=== PATIENT | male | born 1950 | race Caucasian/White ===

== ENCOUNTER 2017-02-03 11:28 | Emergency (ER) | payer MEDICARE, OTHER ==
[~2017-02-03] VITALS: Ht 182.9 cm; Wt 96.6 kg
[~2017-02-03 11:28] MED LIST: ALPR0.5T99 PO; ASPI81TA82 PO; ATRITAB PO; AVOD0.5C PO; BUPR-175 PO; DOXA1 PO; FLUO20 PO; METO25CR PO; ROSU40 PO
[2017-02-03 12:06] VITALS: PULSE 77; RESP 16; TEMP 98.4; O2SAT 97
[2017-02-03] MEDS ORDERED: PROZ20CA11 PO (12:06)
[2017-02-03] MEDS ORDERED: AVOD0.5C PO (12:06)
[2017-02-03] MEDS ORDERED: DOXA1TAB43 PO (12:06)
[2017-02-03] MEDS ORDERED: ASPI81CH CHEW (12:06)
[2017-02-03] MEDS ORDERED: EMTR1TAB2 PO (12:06)
[2017-02-03 12:11] VITALS: O2SAT 72
--- NOTE | 2017-02-03 12:11 | PD ---
HPI Chief Complaint: Cardiac Complaint Time Seen by Provider: 11:50 Travel History International Travel<30 days: No Contact w/Intl Traveler<30days: No Traveled to known affect area: No History of Present Illness HPI The patient is a 66-year-old male who presents to the emergency department for heart weight fluctuations. The patient has noticed over the last several days when he awakens in the morning his heart rate will be in the 40s and 50s, was elevated during the day and then sometimes occasionally drop back into the 40s and 50s. The patient states he spoke with his neighbor who was a nurse and she advised him to get his fluctuations and heart rates evaluated. The patient denies any symptoms such as chest pain, shortness of breath, lightheadedness, dizziness, nausea, vomiting, or abdominal pain. He does have a history of chronic shortness of breath secondary to previous tobacco use and COPD, but denies any acute shortness of breath. The patient is currently followed by his screedman/laborer, Dr. Patel and states he recently had a stress test and echocardiogram which were unremarkable. The patient denies any known history of arrhythmias. He cannot recall which medications he currently takes, does note that he takes a "white pill ", but does not know the name. The patient does take [id number] supplements for his age as well as Hydroxycut. PFSH Past Medical History Arthritis: Yes Autoimmune Disease: Yes (HIV) Blood Disorders: Yes Anxiety: Yes Depression: Yes Cancer: No Cardiovascular Problems: Yes (NC WITH STENT PLACEMENT) Diabetes: No Hepatitis: No Hiatal Hernia: No Hypertension: Yes Immune Disorder: Yes (HIV) Musculoskeletal: Yes Neurologic: No Psychiatric: No Respiratory: Yes (COPD) Thyroid Disease: No Past Surgical History Abdominal Surgery: Yes (APPENDECTOMY, CHOLYCYSTECTOMY) Appendectomy: Yes Cardiac Surgery: Yes (CARDIAC CATHERIZATION) Cholecystectomy: Yes Coronary Stent: Yes Genitourinary Surgery: No Oral Surgery: Yes (TONSILLECTOMY) Pacemaker: No Tonsillectomy: Yes Social History Alcohol Use: Yes (DAILY, 2-3 DRINKS) Tobacco Use: Yes (CIGARETTES, 1 PPD X 42 YEARS) Substance Use: No Allergies-Medications (Allergen,Severity, Reaction): Coded Allergies: phenol (Unverified Allergy, Severe, passed out, 01/02/17) phenol liquid (Unverified Allergy, Severe, passed out, 01/02/17) Reported Meds & Prescriptions Reported Meds & Active Scripts Active Reported Odefsey (Zmslhhdfegvqo-Uajlibhkufk-Uatchfyyy Alafenam) 200-200-25 Mg Tab 1 Tab PO DAILY Prozac (Fluoxetine HCl) 20 Mg Cap 20 Mg PO DAILY Avodart (Dutasteride) 0.5 Mg Cap 0.5 Mg PO DAILY Doxazosin (Doxazosin Mesylate) 8 Mg Tab 8 Mg PO DAILY Aspirin 81 Mg Chew 81 Mg CHEW DAILY Review of Systems Except as stated in HPI: all other systems reviewed are Neg HENT: No: Lightheadedness Cardiovascular: Positive: Other (as noted in the history of present illness), No: Chest Pain or Discomfort, Diaphoresis Respiratory: Positive: Shortness of Breath (chronic shortness of breath, denies any acute changes) Gastrointestinal: No: Nausea, Vomiting Musculoskeletal: No: Weakness, Edema Neurologic: No: Dizziness Physical Exam Narrative GENERAL: Awake, alert, pleasant 66-year-old male who appears his stated age and is in no acute respiratory distress. Very pleasant in conversation. SKIN: Focused skin assessment warm/dry. HEAD: Atraumatic. Normocephalic. EYES: Pupils equal and round. No scleral icterus. No injection or drainage. ENT: No nasal bleeding or discharge. Mucous membranes pink and moist. NECK: Trachea midline. No JVD. CARDIOVASCULAR: Regular rate and rhythm. No murmur appreciated. Heart rate in the 60s. RESPIRATORY: No accessory muscle use. Clear to auscultation. Breath sounds equal bilaterally. GASTROINTESTINAL: Abdomen soft, non-tender, nondistended. No rebound tenderness. MUSCULOSKELETAL: No obvious deformities. No clubbing. No cyanosis. No edema. NEUROLOGICAL: Awake and alert. No obvious cranial nerve deficits. Motor grossly within normal limits. Normal speech. Nonfocal. PSYCHIATRIC: Appropriate mood and affect; insight and judgment normal. Data Data Last Documented VS Vital Signs Date Time Temp Pulse Resp B/P (MAP) Pulse Ox O2 Delivery O2 Flow Rate FiO2 02/03/17 12:11 72 02/03/17 12:06 98.4 77 16 Orders Orders Basic Metabolic Panel (Bmp) (02/03/17 12:02) Ckmb (Isoenzyme) Profile (02/03/17 12:02) Complete Blood Count With Diff (02/03/17 12:02) Magnesium (Mg) (02/03/17 12:02) Troponin I (02/03/17 12:02) Ecg Monitoring (02/03/17 12:02) Iv Access Insert/Monitor (02/03/17 12:02) Oximetry (02/03/17 12:02) Sodium Chloride 0.9% Flush (Ns Flush) (02/03/17 12:15) CKMB (02/03/17 11:47) CKMB% (02/03/17 11:47) Labs Laboratory Tests Test 02/03/17 11:47 White Blood Count 9.8 TH/MM3 Red Blood Count 4.90 MIL/MM3 Hemoglobin 16.1 GM/DL Hematocrit 48.6 % Mean Corpuscular Volume 99.3 FL Mean Corpuscular Hemoglobin 33.0 PG Mean Corpuscular Hemoglobin Concent 33.2 % Red Cell Distribution Width 12.9 % Platelet Count 168 TH/MM3 Mean Platelet Volume 8.8 FL Neutrophils (%) (Auto) 63.7 % Lymphocytes (%) (Auto) 20.5 % Monocytes (%) (Auto) 10.7 % Eosinophils (%) (Auto) 2.1 % Basophils (%) (Auto) 3.0 % Neutrophils # (Auto) 6.2 TH/MM3 Lymphocytes # (Auto) 2.0 TH/MM3 Monocytes # (Auto) 1.1 TH/MM3 Eosinophils # (Auto) 0.2 TH/MM3 Basophils # (Auto) 0.3 TH/MM3 CBC Comment DIFF FINAL Differential Comment Blood Urea Nitrogen 22 MG/DL Creatinine 1.00 MG/DL Random Glucose 97 MG/DL Calcium Level 8.7 MG/DL Magnesium Level 2.3 MG/DL Sodium Level 138 MEQ/L Potassium Level 4.0 MEQ/L Chloride Level 106 MEQ/L Carbon Dioxide Level 23.2 MEQ/L Anion Gap 9 MEQ/L Estimat Glomerular Filtration Rate 75 ML/MIN Total Creatine Kinase 169 U/L Creatine Kinase MB 4.3 NG/ML Troponin I LESS THAN 0.02 NG/ML MDM Medical Decision Making Medical Screen Exam Complete: Yes Emergency Medical Condition: Yes Medical Record Reviewed: Yes Interpretation(s) EKG reveals sinus rhythm with frequent PVCs. Laboratory Tests Test 02/03/17 11:47 White Blood Count 9.8 TH/MM3 Red Blood Count 4.90 MIL/MM3 Hemoglobin 16.1 GM/DL Hematocrit 48.6 % Mean Corpuscular Volume 99.3 FL Mean Corpuscular Hemoglobin 33.0 PG Mean Corpuscular Hemoglobin Concent 33.2 % Red Cell Distribution Width 12.9 % Platelet Count 168 TH/MM3 Mean Platelet Volume 8.8 FL Neutrophils (%) (Auto) 63.7 % Lymphocytes (%) (Auto) 20.5 % Monocytes (%) (Auto) 10.7 % Eosinophils (%) (Auto) 2.1 % Basophils (%) (Auto) 3.0 % Neutrophils # (Auto) 6.2 TH/MM3 Lymphocytes # (Auto) 2.0 TH/MM3 Monocytes # (Auto) 1.1 TH/MM3 Eosinophils # (Auto) 0.2 TH/MM3 Basophils # (Auto) 0.3 TH/MM3 CBC Comment DIFF FINAL Differential Comment Blood Urea Nitrogen 22 MG/DL Creatinine 1.00 MG/DL Random Glucose 97 MG/DL Calcium Level 8.7 MG/DL Magnesium Level 2.3 MG/DL Sodium Level 138 MEQ/L Potassium Level 4.0 MEQ/L Chloride Level 106 MEQ/L Carbon Dioxide Level 23.2 MEQ/L Anion Gap 9 MEQ/L Estimat Glomerular Filtration Rate 75 ML/MIN Total Creatine Kinase 169 U/L Creatine Kinase MB 4.3 NG/ML Troponin I LESS THAN 0.02 NG/ML Differential Diagnosis Differential diagnosis includes medication side effect, sick sinus syndrome, bradycardia, ischemia, medication side effect, supplement side effect. Narrative Course IV was established, labs are drawn and sent, and the patient was placed on cardiac telemetry monitoring and continuous pulse oximetry monitoring. EKG was ordered and interpreted. Electrolytes including magnesium and potassium were sent to lab. Patient is currently asymptomatic and states he recently had a stress test and echocardiogram which were unremarkable, doubt PVCs are acutely related to ischemia. The patient's potassium and magnesium are unremarkable. The patient's troponin is negative, CPK is unremarkable, CPK-MB was slightly elevated at 4.3. However, the patient has no chest pain and recent stress test that was performed as an outpatient. I believe the patient is stable for outpatient follow-up. Diagnosis Primary Impression: Palpitations Patient Instructions: General Instructions Additional Instructions: Stop Hydroxycut. Follow-up with your screedman/laborer, Dr. Patel. Return if symptoms worsen or progress. Please provide the patient a copy of his labs at discharge. Med/Other Pt SpecificInfo: No Change to Meds, Other (stop Hydroxycut) Disposition: 01 DISCHARGE HOME Condition: Stable Toby Grover MD Feb 03, 2017 12:11
[2017-02-03 12:12] LABS: AUTOMATED NEUTROPHIL # 6.2 TH/MM3 (1.8-7.7); BASOPHIL # 0.3 TH/MM3 (0-0.2); EOSINOPHIL # 0.2 TH/MM3 (0-0.4); EOSINOPHIL % 2.1 % (0.0-4.0); HEMATOCRIT 48.6 % (39.0-51.0); HEMO FLAGS DIFF FINAL; LYMPH % 20.5 % (9.0-44.0); MEAN CELL VOLUME 99.3 FL (80.0-100.0); MEAN CORPUSCULAR HGB CONC 33.2 % (32.0-36.0); MONO % 10.7 % (0.0-8.0); NEUT % 63.7 % (16.0-70.0); PLATELET COUNT 168 TH/MM3 (150-450); RED CELL DISTRIBUTION WIDTH 12.9 % (11.6-17.2); WHITE BLOOD COUNT 9.8 TH/MM3 (4.0-11.0)
[2017-02-03] MEDS ORDERED: SODIUM CHLORIDE 0.9% FLUSH 10 ML FLUSH IVF PRN (12:15)
[2017-02-03 12:20] LABS: CHLORIDE 106 MEQ/L (98-107); SODIUM (NA) 138 MEQ/L (136-145)
[2017-02-03 12:23] LABS: ANION GAP 9 MEQ/L (5-15); BICARBONATE 23.2 MEQ/L (21.0-32.0); BLOOD UREA NITROGEN 22 MG/DL (7-18); MAGNESIUM 2.3 MG/DL (1.5-2.5)
[2017-02-03 12:26] LABS: GLOMERULAR FILTRATION RATE 75 ML/MIN (>89)
[2017-02-03 12:29] LABS: CREATINE KINASE 169 U/L (39-308)
[2017-02-03 12:41] LABS: CKMB 4.3 NG/ML (0.5-3.6)
[2017-02-03] MEDS ORDERED: AMLO5 PO (13:11)
--- NOTE | 2017-02-04 13:01 | EKG ---
Date Performed: 02/03/2017 Time Performed: 11:33:25 PTAGE: 66 years EKG: Sinus rhythm WITH FREQUENT VENTRICULAR PREMATURE COMPLEXES WITH OCCASIONAL SUPRAVENTRICULAR PREMATURE COMPLEXES A BNORMAL RHYTHM ECG PREVIOUS TRACING : 01/25/2012 19.29 Compared to previous tracing, ventricular and supraventricu lar ectopy is now present. DOCTOR: Everett Butler Interpretating Date/Time 02/04/2017 13:00:28
== END 2017-02-03 13:20 | disposition home or self-care (01) ==
LOC: PHED 11:28
DX: R00.2 Palpitations (principal); I10 Essential (primary) hypertension; J44.9 Chronic obstructive pulmonary disease, unspecified; Z95.5 Presence of coronary angioplasty implant and graft; Z87.891 Personal history of nicotine dependence
CPT/HCPCS: 80048; 82550; 82552; 83735; 84484; 85025; 93005; 99283